=== PATIENT | female | born 1935 | race Caucasian/White ===

== ENCOUNTER 2016-12-08 08:00 | Inpatient (IN) | payer OTHER ==
[~2016-12-08] VITALS: Ht 147.3 cm; Wt 36.9 kg
[2016-12-08] MEDS ORDERED: ASPIR 8181 MG GT (08:48)
[2016-12-08] MEDS ORDERED: NOR5 GT (08:48)
[2016-12-08] MEDS ORDERED: ATENOLOL25 MG GT (08:49)
[2016-12-08] MEDS ORDERED: PROMOLAXIN100 MG GT (08:51)
[2016-12-08] MEDS ORDERED: DRISDOL50000 IU GT (08:51)
[2016-12-08] MEDS ORDERED: LASIX20 MG GT (08:52)
[2016-12-08] MEDS ORDERED: MEGL PO (08:52)
[2016-12-08] MEDS ORDERED: NAMENDA10 M2 GT (08:53)
[2016-12-08] MEDS ORDERED: MULTI-VITAMINS1 TAB GT (08:53)
[2016-12-08 08:58] LABS: PLATELET COUNT 262 x10^3mcL (130-400)
[2016-12-08 09:01] LABS: RED CELL DISTRIBUTION WIDTH 18.7 % (11.5-14.5)
[2016-12-08 09:11] LABS: ALKALINE PHOSPHATASE 63 U/L (46-116); ALT/SGPT 10 U/L (14-59); AST/SGOT 14 U/L (15-37); BILIRUBIN TOTAL 0.3 mg/dL (0.20-1.00); CALCIUM 8.5 mg/dL (8.5-10.1); CHLORIDE SERUM 95 mmol/L (98-107); CREATININE SERUM 0.8 mg/dL (0.6-1.0); GLUCOSE SERUM 143 mg/dL (74-106); POTASSIUM SERUM 3.2 mmol/L (3.5-5.1); SODIUM SERUM 136 mmol/L (136-145)
[2016-12-08 09:15] LABS: ALBUMIN 1.5 g/dL (3.4-5.0); TOTAL PROTEIN, SERUM 5.7 g/dL (6.4-8.2)
[2016-12-08 09:26] LABS: UA SPECIFIC GRAVITY 1.015 (1.005-1.035); microscopic required? YES; urine erythrocyte TRACE (NEGATIVE)
[2016-12-08 09:54] LABS: ATYPICAL LYMPH 1 %; BAND NEUTROPHIL 33 % (0-10); BASOPHIL 0 % (0-2); CK-MB 0.7 ng/mL (0-3.6); METAMYELOCTE 1 % (0-2); MONOCYTE 11 % (0-7); SEGMENTED NEUTROPHILS 39 % (37-75)
[2016-12-08 09:55] LABS: rbc morphology (normal/abnorm) ABNORMAL (NORMAL); target cell (codocyte) 1+
[2016-12-08 12:10] VITALS: BP 94/51
[2016-12-08 13:11] LABS: CHOLESTEROL/HDL RATIO 5.9
[2016-12-08 13:22] LABS: FREE T4 1.03 ng/dL (0.76-1.46)
[2016-12-08 13:24] LABS: FREE THYROXINE INDEX 1.6 ug/dL (1.4-4.5); T4(THYROXINE) 4.1 ug/dL (4.7-13.3)
[2016-12-08 13:46] LABS: T3 TOTAL 0.45 ng/mL
[2016-12-08 14:09] LABS: AMPHETAMINE QUAL UR NONE DETECTED (NEG <=1000)
[2016-12-08 15:08] VITALS: BP 94/46
[2016-12-08 18:40] VITALS: BP 125/55
[2016-12-08 21:37] VITALS: BP 111/43
[2016-12-08 22:21] VITALS: BP 117/55
[2016-12-09 02:19] VITALS: BP 117/55
[2016-12-09 05:52] VITALS: BP 99/49
[2016-12-09 06:31] LABS: PLATELET COUNT 252 x10^3mcL (130-400)
[2016-12-09 06:46] LABS: CALCIUM 8.4 mg/dL (8.5-10.1); CARBON DIOXIDE 31.9 mmol/L (21-32); CHLORIDE SERUM 100 mmol/L (98-107); CREATININE SERUM 0.6 mg/dL (0.6-1.0); GLUCOSE SERUM 106 mg/dL (74-106); MAGNESIUM 2.2 mg/dL (1.8-2.4); PHOSPHOROUS 1.7 mg/dL (2.5-4.9); POTASSIUM SERUM 5.4 mmol/L (3.5-5.1); SODIUM SERUM 134 mmol/L (136-145)
[2016-12-09 08:26] LABS: RED CELL DISTRIBUTION WIDTH 19.2 % (11.5-14.5)
[2016-12-09 10:31] VITALS: BP 105/65
[2016-12-09 10:47] LABS: BAND NEUTROPHIL 27 % (0-10); BASOPHIL 0 % (0-2); METAMYELOCTE 2 % (0-2); MONOCYTE 8 % (0-7); MYELOCYTE 2 % (0-2); PLATELET MORPHOLOGY PLATELETS NORMAL; SEGMENTED NEUTROPHILS 58 % (37-75); rbc morphology (normal/abnorm) ABNORMAL (NORMAL)
[2016-12-09 13:30] VITALS: BP 98/52
[2016-12-09 17:42] VITALS: BP 119/64
[2016-12-09 20:15] VITALS: BP 107/55
[2016-12-10 06:03] VITALS: BP 101/55
[2016-12-10 07:09] LABS: PLATELET COUNT 266 x10^3mcL (130-400)
[2016-12-10 07:38] LABS: CALCIUM 8.3 mg/dL (8.5-10.1); CARBON DIOXIDE 35.4 mmol/L (21-32); CHLORIDE SERUM 103 mmol/L (98-107); CREATININE SERUM 0.7 mg/dL (0.6-1.0); GLUCOSE SERUM 155 mg/dL (74-106); MAGNESIUM 2.1 mg/dL (1.8-2.4); PHOSPHOROUS 2.5 mg/dL (2.5-4.9); POTASSIUM SERUM 3.6 mmol/L (3.5-5.1); SODIUM SERUM 141 mmol/L (136-145)
[2016-12-10 09:03] LABS: RED CELL DISTRIBUTION WIDTH 19.6 % (11.5-14.5)
[2016-12-10 09:22] VITALS: BP 120/62
[2016-12-10 11:58] LABS: BAND NEUTROPHIL 25 % (0-10); SEGMENTED NEUTROPHILS 67 % (37-75)
[2016-12-10 11:59] LABS: MONOCYTE 4 % (0-7); PLATELET MORPHOLOGY LARGE PLATELET SEEN; rbc morphology (normal/abnorm) ABNORMAL (NORMAL)
[2016-12-10 13:53] VITALS: BP 85/59
[2016-12-10 14:10] VITALS: BP 107/57
[2016-12-10 17:24] VITALS: BP 113/72
[2016-12-10 20:22] VITALS: BP 106/68
[2016-12-11 05:43] VITALS: BP 117/67
[2016-12-11 06:27] LABS: PLATELET COUNT 274 x10^3mcL (130-400)
[2016-12-11 06:46] LABS: CALCIUM 7.8 mg/dL (8.5-10.1); CHLORIDE SERUM 101 mmol/L (98-107); CREATININE SERUM 0.6 mg/dL (0.6-1.0); GLUCOSE SERUM 120 mg/dL (74-106); POTASSIUM SERUM 4.4 mmol/L (3.5-5.1); SODIUM SERUM 139 mmol/L (136-145)
[2016-12-11 07:09] LABS: RED CELL DISTRIBUTION WIDTH 19.5 % (11.5-14.5)
[2016-12-11 09:04] LABS: BAND NEUTROPHIL 5 % (0-10); METAMYELOCTE 1 % (0-2); MONOCYTE 2 % (0-7); MYELOCYTE 1 % (0-2); SEGMENTED NEUTROPHILS 83 % (37-75)
[2016-12-11 09:05] LABS: ovalocyte/elliptocyte 1+; rbc morphology (normal/abnorm) ABNORMAL (NORMAL); schistocyte (helmet cell) 1+; target cell (codocyte) 1+
[2016-12-11 10:07] VITALS: BP 116/64
[2016-12-11 13:10] VITALS: BP 116/64
[2016-12-11 13:55] VITALS: BP 100/58
== END 2016-12-11 14:33 | DRG 177 ==
LOC: ED 08:00 → DU 10:17
PROVIDERS: Emergency Medicine; Family Medicine; ADMIT Family Medicine
DX: J69.0 Pneumonitis due to inhalation of food and vomit (principal); N17.0 Acute kidney failure with tubular necrosis; E43 Unspecified severe protein-calorie malnutrition; G93.41 Metabolic encephalopathy; J96.20 Acute and chronic respiratory failure, unspecified whether with hypoxia or hypercapnia; I42.2 Other hypertrophic cardiomyopathy; Z68.1 Body mass index [BMI] 19.9 or less, adult; C34.82 Malignant neoplasm of overlapping sites of left bronchus and lung; C34.81 Malignant neoplasm of overlapping sites of right bronchus and lung; J91.0 Malignant pleural effusion; E87.6 Hypokalemia; R80.8 Other proteinuria; Z93.1 Gastrostomy status; Z79.82 Long term (current) use of aspirin; G30.9 Alzheimer's disease, unspecified; F02.80 Dementia in other diseases classified elsewhere, unspecified severity, without behavioral disturbance, psychotic disturbance, mood disturbance, and anxiety; Z66 Do not resuscitate; Z51.5 Encounter for palliative care
CPT/HCPCS: 36600; 80307; 83880; 84439; 92610-GN; J1956; J2543; J7030; J7040; Q0092; Q9967